=== PATIENT | female | born 1985 | race Caucasian/White ===

== ENCOUNTER 2019-02-03 15:14 | Emergency (ER) | payer OTHER ==
[~2019-02-03] VITALS: Ht 167.6 cm; Wt 61.2 kg
[~2019-02-03 15:14] MED LIST: Amoxicillin500 MG PO; CEFD300 PO; CHLO25 PO; CITA20 PO; CYCL10 PO; Citalopram HBr10 MG PO; DONE10 PO; FAMO20 PO; FAMO40 PO; HYDACE5 PO; IBUP800 PO; INSULANI SC; LACT PO; LEVSOD150 PO; MEMA10 PO; MULVITMINE; Minipress5 MG; NALT50 PO; OMEP10ER; OMEP20ER; ONDA4 PO; OXYACE5T PO; PANT40 PO; PRAZ1 PO; PRED10 PO; PRED20 PO; PROM6.25SY PO; Percocet 5-3251 EACH PO; Permethrin60 GM TP; QUET100 PO; SERT100 PO; SERT50 PO; Verotin-Gr Cap1 EACH PO; YAZ PO; Zoloft100 MG PO; [UNRECOGNIZED DRUG - OTHER]; [UNRECOGNIZED DRUG - OTHER]
[2019-02-03] MEDS ORDERED: YAZ 28 TABLET1 EACH PO (16:16)
[2019-02-03] MEDS ORDERED: CYCL10 PO (16:38)
[2019-02-03] MEDS ORDERED: IBUP600 PO (16:39)
== END 2019-02-03 16:58 | disposition home or self-care (01) ==
LOC: ER 15:14
DX: S16.1XXA Strain of muscle, fascia and tendon at neck level, initial encounter (principal); S29.012A Strain of muscle and tendon of back wall of thorax, initial encounter; M54.5 Low back pain; R11.10 Vomiting, unspecified; F17.210 Nicotine dependence, cigarettes, uncomplicated; Z91.040 Latex allergy status; Z88.8 Allergy status to other drugs, medicaments and biological substances; Z79.899 Other long term (current) drug therapy; V59.49XA Driver of pick-up truck or van injured in collision with other motor vehicles in traffic accident, initial encounter
CPT/HCPCS: 72040; 96372; 99284-25; J1885

== ENCOUNTER → 2019-12-29 | Outpatient (CLI) | payer OTHER ==
[~2019-12-29] MED LIST changes: +IBUP600 PO; +YAZ 28 TABLET1 EACH PO
== END | disposition home or self-care (01) ==
LOC: LAB SHORT 11:14 → LAB 11:14
PROVIDERS: Advanced Practice Midwife
DX: O60.03 Preterm labor without delivery, third trimester (principal)
CPT/HCPCS: 82731

== ENCOUNTER 2020-02-12 21:07 | Inpatient (IN) | payer OTHER ==
[~2020-02-12] VITALS: Ht 165.1 cm; Wt 65.4 kg
[~2020-02-12 21:07] MED LIST changes: +NITR100CA PO; +PRENATAL TABLE1 EAC2 PO
[2020-02-12 21:35] LABS: BASOPHILS ABSOLUTE AUTO 0.04 K/mm3 (0.00-0.23); BASOPHILS PERCENT AUTO 0 % (0-2); EOSINOPHILS ABSOLUTE AUTO 0.11 K/mm3 (0.00-0.68); EOSINOPHILS PERCENT AUTO 1 % (0-6); Hematocrit 38.3 % (33.0-51.0); Hemoglobin 12.9 g/dL (11.5-16.0); IMMATURE GRAN ABSOLUTE AUTO 0.13 K/mm3 (0.00-0.10); IMMATURE GRAN PERCENT AUTO 1 % (0-1); LYMPHOCYTES ABSOLUTE AUTO 3.79 K/mm3 (0.84-5.20); LYMPHOCYTES PERCENT AUTO 25 % (21-46); MONOCYTES ABSOLUTE AUTO 0.92 K/mm3 (0.16-1.47); MONOCYTES PERCENT AUTO 6 % (4-13); Mean Corpuscular HGB 30.3 pg (26.0-34.0); Mean Corpuscular HGB Conc 33.7 g/dL (31.5-36.5); Mean Corpuscular Volume 90 fL (80-100); Mean Platelet Volume 11.1 fL (9.1-12.4); NEUTROPHILS PERCENT AUTO 68 % (41-73); Platelet Count 258 K/mm3 (150-400); RDW Coefficient Variation 13.5 % (11.7-14.2); RDW Standard Deviation 43.8 fL (35.1-46.3); Red Blood Cell Count 4.26 M/mm3 (3.80-5.20); White Blood Cell Count 15.49 K/mm3 (4.00-11.30)
--- NOTE | 2020-02-13 10:05 | NUR ---
8970 PT DC HOME, UNDELIVERED, PT CONTRACTIONS ARE SPACED OUT, PT WAS ABLE TO SLEEP THRU THEM, HAS NO CERVICAL CHANGE FROM ADMIT, WAS SEEN BY DR FRANKLIN, DR FRANKLIN REVIEWED STRIP AND TO DC PT HOME WITH INSTRUCTIONS
== END 2020-02-13 09:50 | disposition home or self-care (01) | DRG 833 ==
LOC: OBS 21:07 → BC 21:25
PROVIDERS: ADMIT Advanced Practice Midwife
DX: O47.1 False labor at or after 37 completed weeks of gestation (principal); Z3A.37 37 weeks gestation of pregnancy
CPT/HCPCS: 36415; 85025; 86850; 86900; 86901; J2210

== ENCOUNTER 2020-02-18 20:54 | Inpatient (IN) | payer OTHER ==
[~2020-02-18] VITALS: Ht 165.1 cm; Wt 63.0 kg
[2020-02-18 23:17] LABS: BASOPHILS ABSOLUTE AUTO 0.05 K/mm3 (0.00-0.23); BASOPHILS PERCENT AUTO 0 % (0-2); EOSINOPHILS PERCENT AUTO 1 % (0-6); Hematocrit 39.2 % (33.0-51.0); Hemoglobin 13.2 g/dL (11.5-16.0); IMMATURE GRAN ABSOLUTE AUTO 0.18 K/mm3 (0.00-0.10); IMMATURE GRAN PERCENT AUTO 1 % (0-1); LYMPHOCYTES ABSOLUTE AUTO 3.97 K/mm3 (0.84-5.20); LYMPHOCYTES PERCENT AUTO 24 % (21-46); MONOCYTES ABSOLUTE AUTO 1.01 K/mm3 (0.16-1.47); MONOCYTES PERCENT AUTO 6 % (4-13); Mean Corpuscular HGB 29.9 pg (26.0-34.0); Mean Corpuscular HGB Conc 33.7 g/dL (31.5-36.5); Mean Corpuscular Volume 89 fL (80-100); Mean Platelet Volume 10.9 fL (9.1-12.4); NEUTROPHILS ABSOLUTE AUTO 11.44 K/mm3 (1.96-9.15); NEUTROPHILS PERCENT AUTO 68 % (41-73); Platelet Count 237 K/mm3 (150-400); RDW Coefficient Variation 13.2 % (11.7-14.2); RDW Standard Deviation 43.4 fL (35.1-46.3); Red Blood Cell Count 4.42 M/mm3 (3.80-5.20); White Blood Cell Count 16.75 K/mm3 (4.00-11.30)
[2020-02-19 06:18] LABS: BASOPHILS ABSOLUTE AUTO 0.06 K/mm3 (0.00-0.23); BASOPHILS PERCENT AUTO 0 % (0-2); EOSINOPHILS ABSOLUTE AUTO 0.11 K/mm3 (0.00-0.68); EOSINOPHILS PERCENT AUTO 1 % (0-6); Hematocrit 36.1 % (33.0-51.0); Hemoglobin 12.1 g/dL (11.5-16.0); IMMATURE GRAN ABSOLUTE AUTO 0.17 K/mm3 (0.00-0.10); IMMATURE GRAN PERCENT AUTO 1 % (0-1); LYMPHOCYTES ABSOLUTE AUTO 4.04 K/mm3 (0.84-5.20); LYMPHOCYTES PERCENT AUTO 20 % (21-46); MONOCYTES ABSOLUTE AUTO 1.52 K/mm3 (0.16-1.47); MONOCYTES PERCENT AUTO 8 % (4-13); Mean Corpuscular HGB 30.1 pg (26.0-34.0); Mean Corpuscular HGB Conc 33.5 g/dL (31.5-36.5); Mean Corpuscular Volume 90 fL (80-100); Mean Platelet Volume 11.1 fL (9.1-12.4); NEUTROPHILS ABSOLUTE AUTO 14.35 K/mm3 (1.96-9.15); NEUTROPHILS PERCENT AUTO 71 % (41-73); Platelet Count 206 K/mm3 (150-400); RDW Coefficient Variation 13.3 % (11.7-14.2); RDW Standard Deviation 43.8 fL (35.1-46.3); Red Blood Cell Count 4.02 M/mm3 (3.80-5.20); White Blood Cell Count 20.25 K/mm3 (4.00-11.30)
[2020-02-19 11:36] LABS: BASOPHILS ABSOLUTE AUTO 0.06 K/mm3 (0.00-0.23); BASOPHILS PERCENT AUTO 0 % (0-2); EOSINOPHILS ABSOLUTE AUTO 0.14 K/mm3 (0.00-0.68); EOSINOPHILS PERCENT AUTO 1 % (0-6); Hematocrit 31.6 % (33.0-51.0); Hemoglobin 10.6 g/dL (11.5-16.0); IMMATURE GRAN PERCENT AUTO 1 % (0-1); LYMPHOCYTES ABSOLUTE AUTO 4.21 K/mm3 (0.84-5.20); LYMPHOCYTES PERCENT AUTO 20 % (21-46); MONOCYTES ABSOLUTE AUTO 1.42 K/mm3 (0.16-1.47); MONOCYTES PERCENT AUTO 7 % (4-13); Mean Corpuscular HGB 30.5 pg (26.0-34.0); Mean Corpuscular HGB Conc 33.5 g/dL (31.5-36.5); Mean Corpuscular Volume 91 fL (80-100); Mean Platelet Volume 10.9 fL (9.1-12.4); NEUTROPHILS ABSOLUTE AUTO 15.14 K/mm3 (1.96-9.15); NEUTROPHILS PERCENT AUTO 71 % (41-73); Platelet Count 203 K/mm3 (150-400); RDW Coefficient Variation 13.3 % (11.7-14.2); RDW Standard Deviation 43.8 fL (35.1-46.3); Red Blood Cell Count 3.48 M/mm3 (3.80-5.20); White Blood Cell Count 21.27 K/mm3 (4.00-11.30)
--- NOTE | 2020-02-19 12:29 | NUR ---
0855--PT STATES THAT SHE HAS HAD MANY CLOTS, ADVISED TO CALL WHEN IN BATHROOM SO THAT RN CAN ASSESS. UTERUS REMAINS FIRM WITH MASSAGE AT 2FIB. WHEN GOT UP TO GO TO THE BATHROOM LARGE CLOTS AND BLEEDING NOTED. WEIGHED PADS AT 402 GMS. IM METHERGINE GIVEN AND PROVIDER NOTIFIED FOR ORDER. 0945--PT BACK UP TO BATHROOM, NO FURTHER CLOTS NOTED. PADS WEIGHED 115 GMS AT THIS TIME. PROVIDER UPDATED AGAIN AND ADVISED TO START PO METHERGINE AND CYTOTEC ALTERNATING EVERY 3 HOURS. CYTOTEC GIVEN AT THIS TIME. 1045--PT EXITING ROOM TO GO OUT TO SMOKE WITH FOB. RN ADVISED AGAINST THIS AND ASKED IF SHE COULD CHANGE HER PAD. PAD WEIGHED 77GM AT THIS TIME AND PATIENT EXITED ROOM. SHE DID NOT MAKE IT TO THE END OF THE MOELLER BEFORE RETURNING TO THE BATHROOM WHERE SHE PRODUCED ANOTHER LARGE CLOT. PAD WEIGHED 145. PROVIDER UPDATED, SHE WAS GOING TO COME IN TO ASSESS. PER PROTOCAL GAVE PITOCIN AT 999/HR WITH FLUIDS AND 800 OF RECTAL CYTETEC. UTERUS IS BOGGY AND NOT FIRMING WITH MASSAGE. PROVIDER ADVISED A SECOND DOSE OF IM METHERGINE. 1145--BLEEDING HAS SLOWED AND FUNDUS REMAINS FIRM AT 3+ BELOW UMBILICUS. PT IS VERY CRAMPY BUT DOING OK. NO FURTHER CLOTS NOTED AT THIS TIME. PROVIDER REMAINS ON UNIT. NICOTINE PATCH WAS OFFERED AND DECLINED AT THIS TIME.
[2020-02-20] MEDS ORDERED: IBUP800 (12:23)
== END 2020-02-20 12:35 | disposition home or self-care (01) | DRG 806 ==
LOC: OBS 20:54 → BC 20:55 → OBS 22:58 → BC 23:02
PROVIDERS: ADMIT Nurse Practitioner Obstetrics & Gynecology
PROC: 10907ZC Drainage of Amniotic Fluid, Therapeutic from Products of Conception, Via Natural or Artificial Opening (ICD-10-PCS; 2020-02-18)
PROC: 10E0XZZ Delivery of Products of Conception, External Approach (ICD-10-PCS; principal; 2020-02-19)
DX: O69.3XX0 Labor and delivery complicated by short cord, not applicable or unspecified (principal); O72.1 Other immediate postpartum hemorrhage; Z37.0 Single live birth; Z3A.37 37 weeks gestation of pregnancy
CPT/HCPCS: 36415; 59025; 81003; 85025; 86850; 86900; 86901; A9270; J1885; J2210; J2590; J3010; J7120

== ENCOUNTER 2021-08-06 21:49 | Inpatient (IN) | payer OTHER ==
[~2021-08-06] VITALS: Ht 165.1 cm; Wt 67.0 kg
[~2021-08-06 21:49] MED LIST changes: +IBUP800
[2021-08-06 23:49] LABS: BASOPHILS ABSOLUTE AUTO 0.04 K/mm3 (0.00-0.23); BASOPHILS PERCENT AUTO 0 % (0-2); EOSINOPHILS ABSOLUTE AUTO 0.08 K/mm3 (0.00-0.68); EOSINOPHILS PERCENT AUTO 1 % (0-6); Hematocrit 37.7 % (33.0-51.0); Hemoglobin 12.4 g/dL (11.5-16.0); IMMATURE GRAN ABSOLUTE AUTO 0.12 K/mm3 (0.00-0.10); IMMATURE GRAN PERCENT AUTO 1 % (0-1); LYMPHOCYTES ABSOLUTE AUTO 2.37 K/mm3 (0.84-5.20); LYMPHOCYTES PERCENT AUTO 17 % (21-46); MONOCYTES ABSOLUTE AUTO 0.87 K/mm3 (0.16-1.47); MONOCYTES PERCENT AUTO 6 % (4-13); Mean Corpuscular HGB 28.6 pg (26.0-34.0); Mean Corpuscular HGB Conc 32.9 g/dL (31.5-36.5); Mean Corpuscular Volume 87 fL (80-100); NEUTROPHILS ABSOLUTE AUTO 10.11 K/mm3 (1.96-9.15); NEUTROPHILS PERCENT AUTO 74 % (41-73); Platelet Count 306 K/mm3 (150-400); RDW Coefficient Variation 13.6 % (11.7-14.2); RDW Standard Deviation 42.9 fL (35.1-46.3); Red Blood Cell Count 4.34 M/mm3 (3.80-5.20); White Blood Cell Count 13.59 K/mm3 (4.00-11.30)
[2021-08-07 00:25] LABS: Influenza A, PCR NEGATIVE (NEGATIVE); Influenza B, PCR NEGATIVE (NEGATIVE); Resp Syncytial Virus, PCR NEGATIVE (NEGATIVE); SARS-Cov-2 (COVID-19) PCR, MMC NEGATIVE (NEGATIVE)
[2021-08-08 05:33] LABS: BASOPHILS ABSOLUTE AUTO 0.03 K/mm3 (0.00-0.23); BASOPHILS PERCENT AUTO 0 % (0-2); EOSINOPHILS ABSOLUTE AUTO 0.21 K/mm3 (0.00-0.68); EOSINOPHILS PERCENT AUTO 2 % (0-6); Hematocrit 35.2 % (33.0-51.0); Hemoglobin 11.7 g/dL (11.5-16.0); IMMATURE GRAN PERCENT AUTO 1 % (0-1); LYMPHOCYTES ABSOLUTE AUTO 3.78 K/mm3 (0.84-5.20); LYMPHOCYTES PERCENT AUTO 31 % (21-46); MONOCYTES PERCENT AUTO 8 % (4-13); Mean Corpuscular HGB 28.7 pg (26.0-34.0); Mean Corpuscular HGB Conc 33.2 g/dL (31.5-36.5); Mean Corpuscular Volume 86 fL (80-100); Mean Platelet Volume 10.5 fL (9.1-12.4); NEUTROPHILS ABSOLUTE AUTO 7.25 K/mm3 (1.96-9.15); NEUTROPHILS PERCENT AUTO 59 % (41-73); Platelet Count 300 K/mm3 (150-400); RDW Coefficient Variation 13.7 % (11.7-14.2); RDW Standard Deviation 42.5 fL (35.1-46.3); Red Blood Cell Count 4.08 M/mm3 (3.80-5.20); White Blood Cell Count 12.37 K/mm3 (4.00-11.30)
--- NOTE | 2021-08-08 11:01 | NUR ---
BANDS MATCHED, HAS COPY OF DC INSTRUCTIONS, HAS APPT FOR [facility] TOMORROW 4-1 ENCOURAGED TO CALL WITH QUESTIONS
== END 2021-08-08 11:10 | disposition home or self-care (01) | DRG 807 ==
LOC: OBS 21:49 → BC 21:55 → OBS 23:16 → BC 23:18
PROVIDERS: ADMIT Obstetrics & Gynecology
PROC: 10E0XZZ Delivery of Products of Conception, External Approach (ICD-10-PCS; principal; 2021-08-07)
PROC: 10907ZC Drainage of Amniotic Fluid, Therapeutic from Products of Conception, Via Natural or Artificial Opening (ICD-10-PCS; 2021-08-07)
DX: O80 Encounter for full-term uncomplicated delivery (principal); Z37.0 Single live birth; Z3A.38 38 weeks gestation of pregnancy; Z20.822 Contact with and (suspected) exposure to COVID-19; Z67.20 Type B blood, Rh positive
CPT/HCPCS: 0241U; 36415; 59025; 85025; 86850; 86900; 86901; A9270; J1885; J2210; J3010

== ENCOUNTER 2022-03-01 12:45 | Emergency (ER) | payer OTHER ==
[~2022-03-01] VITALS: Ht 165.1 cm; Wt 59.0 kg
[2022-03-01] MEDS ORDERED: Norco 5-325 Ta1 EACH PO (14:01)
== END 2022-03-01 14:12 | disposition home or self-care (01) ==
LOC: ER 12:45
DX: S20.211A Contusion of right front wall of thorax, initial encounter (principal); Y04.8XXA Assault by other bodily force, initial encounter; F17.210 Nicotine dependence, cigarettes, uncomplicated; Z88.8 Allergy status to other drugs, medicaments and biological substances; Z91.040 Latex allergy status
CPT/HCPCS: 71046

== ENCOUNTER 2023-05-25 04:54 | Emergency (ER) | payer OTHER ==
[~2023-05-25] VITALS: Ht 167.6 cm; Wt 56.7 kg
[~2023-05-25 04:54] MED LIST changes: +Norco 5-325 Ta1 EACH PO
[2023-05-25 06:27] LABS: BASOPHILS ABSOLUTE AUTO 0.02 K/mm3 (0.00-0.23); BASOPHILS PERCENT AUTO 0 % (0-2); EOSINOPHILS ABSOLUTE AUTO 0.04 K/mm3 (0.00-0.68); EOSINOPHILS PERCENT AUTO 1 % (0-6); Hemoglobin 14.1 g/dL (11.5-16.0); IMMATURE GRAN ABSOLUTE AUTO 0.02 K/mm3 (0.00-0.10); IMMATURE GRAN PERCENT AUTO 0 % (0-1); LYMPHOCYTES ABSOLUTE AUTO 0.97 K/mm3 (0.84-5.20); LYMPHOCYTES PERCENT AUTO 12 % (21-46); MONOCYTES ABSOLUTE AUTO 0.75 K/mm3 (0.16-1.47); MONOCYTES PERCENT AUTO 9 % (4-13); Mean Corpuscular HGB 29.4 pg (26.0-34.0); Mean Corpuscular HGB Conc 32.8 g/dL (31.5-36.5); Mean Corpuscular Volume 90 fL (80-100); Mean Platelet Volume 10.1 fL (9.1-12.4); NEUTROPHILS ABSOLUTE AUTO 6.53 K/mm3 (1.96-9.15); NEUTROPHILS PERCENT AUTO 79 % (41-73); Platelet Count 232 K/mm3 (150-400); RDW Coefficient Variation 14.1 % (11.7-14.2); RDW Standard Deviation 46.4 fL (35.1-46.3); White Blood Cell Count 8.33 K/mm3 (4.00-11.30)
[2023-05-25 06:33] LABS: Albumin, Blood 3.4 g/dL (3.4-5.0); Albumin/Globulin Ratio 0.8 (0.8-1.8); Bilirubin, Total 0.5 mg/dL (0.1-1.0); Bun/Creatinine Ratio 7.2 (12.0-20.0); Calcium, Blood 8.6 mg/dL (8.5-10.1); Creatinine, Blood 0.83 mg/dL (0.40-1.00); Globulin, Blood 4.1 g/dL (2.2-4.0); Potassium, Blood 3.6 mmol/L (3.5-5.5); Total Protein, Blood 7.5 g/dL (6.4-8.2)
[2023-05-25 06:38] LABS: Source, Urine Clean Catch
[2023-05-25 06:52] LABS: Bilirubin, Urine Neg (Neg); Blood, Urine 3+ (Neg); Glucose Qualitative, Urine Neg (Neg); Ketones, Urine 1+ (Neg); Leukocyte Esterase, Urine 3+ (Neg); Nitrite, Urine Neg (Neg); Protein, Urine 2+ (Neg); Urobilinogen, Urine NORM (Normal)
[2023-05-25 06:58] LABS: Influenza A, PCR NEGATIVE (NEGATIVE); Influenza B, PCR NEGATIVE (NEGATIVE); Resp Syncytial Virus, PCR NEGATIVE (NEGATIVE); SARS-Cov-2 (COVID-19) PCR, MMC NEGATIVE (NEGATIVE)
[2023-05-25 07:05] LABS: Appearance, Urine Hazy (Clear); Color, Urine Yellow (P-Yellow)
[2023-05-25 07:06] LABS: Bacteria Mod /hpf; Mucus Light (0-Heavy); Squamous Epithelial Cells Mod /hpf (Few)
[2023-05-25 10:03] LABS: Source, Urine Straight Cath
[2023-05-25 10:20] LABS: Bilirubin, Urine Neg (Neg); Blood, Urine 2+ (Neg); Glucose Qualitative, Urine Neg (Neg); Ketones, Urine Neg (Neg); Leukocyte Esterase, Urine 1+ (Neg); Nitrite, Urine Neg (Neg); Protein, Urine 1+ (Neg); Urobilinogen, Urine NORM (Normal)
[2023-05-25 10:34] LABS: Appearance, Urine Hazy (Clear); Color, Urine Yellow (P-Yellow)
[2023-05-25 10:35] LABS: Bacteria Few /hpf; Squamous Epithelial Cells Few /hpf (Few)
[2023-05-25] MEDS ORDERED: OXYC5 PO (10:58)
[2023-05-25] MEDS ORDERED: CEPH500 PO (10:58)
[2023-05-25 11:15] VITALS: BP 114/91
== END 2023-05-25 11:25 | disposition home or self-care (01) ==
LOC: ER 04:54
PROVIDERS: Emergency Medicine
DX: N12 Tubulo-interstitial nephritis, not specified as acute or chronic (principal); F17.210 Nicotine dependence, cigarettes, uncomplicated; Z11.52 Encounter for screening for COVID-19
CPT/HCPCS: 0241U; 36415; 74177; 76705; 80053; 81001; 81025; 83690; 85025; 87077; 87086; 87186; 96361; 96374-59; 96375; 99284-25; J0696; J1170; J2405; J7030; P9612; Q9967

== ENCOUNTER → 2023-10-31 | Outpatient (CLI) | payer OTHER ==
[~2023-10-31] MED LIST changes: +CEPH500 PO; +OXYC5 PO
== END | disposition home or self-care (01) ==
LOC: LAB SHORT 16:55 → LAB 16:55
DX: N12 Tubulo-interstitial nephritis, not specified as acute or chronic (principal)
CPT/HCPCS: 87077; 87086; 87186

== ENCOUNTER 2023-11-18 20:15 | Emergency (ER) | payer OTHER ==
[~2023-11-18] VITALS: Ht 167.6 cm; Wt 56.7 kg
[2023-11-18 20:22] VITALS: BP 127/94
[2023-11-18 21:10] LABS: Influenza A, PCR NEGATIVE (NEGATIVE); Influenza B, PCR NEGATIVE (NEGATIVE); Resp Syncytial Virus, PCR NEGATIVE (NEGATIVE); SARS-Cov-2 (COVID-19) PCR, MMC NEGATIVE (NEGATIVE)
[2023-11-22] MEDS ORDERED: CEFP200 PO (00:31)
== END 2023-11-18 20:23 | disposition home or self-care (01) ==
LOC: ER 20:15
PROVIDERS: Physician Assistant
DX: J06.9 Acute upper respiratory infection, unspecified (principal); F32.A Depression, unspecified; F41.9 Anxiety disorder, unspecified; F17.210 Nicotine dependence, cigarettes, uncomplicated; Z79.899 Other long term (current) drug therapy; Z88.8 Allergy status to other drugs, medicaments and biological substances; Z91.040 Latex allergy status
CPT/HCPCS: 0241U; 99283

== ENCOUNTER 2024-11-20 19:09 | Emergency (ER) | payer OTHER ==
[~2024-11-20] VITALS: Ht 165.1 cm; Wt 49.4 kg
[~2024-11-20 19:09] MED LIST changes: +CEFP200 PO
[2024-11-20 20:09] LABS: BASOPHILS ABSOLUTE AUTO 0.02 K/mm3 (0.00-0.23); BASOPHILS PERCENT AUTO 0 % (0-2); EOSINOPHILS ABSOLUTE AUTO 0.00 K/mm3 (0.00-0.68); EOSINOPHILS PERCENT AUTO 0 % (0-6); Hematocrit 45.1 % (33.0-51.0); Hemoglobin 15.7 g/dL (11.5-16.0); IMMATURE GRAN ABSOLUTE AUTO 0.01 K/mm3 (0.00-0.10); IMMATURE GRAN PERCENT AUTO 0 % (0-1); LYMPHOCYTES ABSOLUTE AUTO 1.02 K/mm3 (0.84-5.20); LYMPHOCYTES PERCENT AUTO 17 % (21-46); MONOCYTES ABSOLUTE AUTO 0.37 K/mm3 (0.16-1.47); MONOCYTES PERCENT AUTO 6 % (4-13); Mean Corpuscular HGB Conc 34.8 g/dL (31.5-36.5); Mean Corpuscular Volume 101 fL (80-100); NEUTROPHILS ABSOLUTE AUTO 4.44 K/mm3 (1.96-9.15); NEUTROPHILS PERCENT AUTO 76 % (41-73); NRBC ABSOLUTE 0.00 K/mm3 (0.00-0.02); NRBC Auto 0.0 /100 WBC (0.0-0.2); Platelet Count 185 K/mm3 (150-400); RDW Coefficient Variation 14.1 % (11.7-14.2); RDW Standard Deviation 52.3 fL (35.1-46.3)
[2024-11-20 20:19] LABS: Bilirubin, Urine Neg (Neg); Color, Urine Yellow (P-Yellow); Glucose Qualitative, Urine Neg (Neg); Ketones, Urine 3+ (Neg); Leukocyte Esterase, Urine 1+ (Neg); Protein, Urine 2+ (Neg); Source, Urine Clean Catch; Specific Gravity, Urine 1.025 (1.003-1.022); Urobilinogen, Urine NORM (Normal)
[2024-11-20 20:25] LABS: White Blood Cells, Urine 25-50 /hpf (0-5)
[2024-11-20 20:26] LABS: Red Blood Cells, Urine 0-2 /hpf (0-2)
[2024-11-20 20:43] LABS: Alanine Aminotransfer (ALT/SGP 152.0 U/L (12-78); Albumin, Blood 3.9 g/dL (3.4-5.0); Albumin/Globulin Ratio 1.0 (0.8-1.8); Anion Gap 17.0 mmol/L (3-11); Aspartate Aminotrans (AST/SGOT 464.0 U/L (12-37); Bilirubin, Total 1.2 mg/dL (0.1-1.0); Blood Urea Nitrogen 9.0 mg/dL (8-24); CO2, Blood 20.0 mmol/L (21-32); Calcium, Blood 9.0 mg/dL (8.5-10.1); Chloride, Blood 104.0 mmol/L (98-108); Creatinine, Blood 0.61 mg/dL (0.40-1.00); Globulin, Blood 4.0 g/dL (2.2-4.0); Glucose, Blood 70.0 mg/dL (70-99); Potassium, Blood 4.0 mmol/L (3.5-5.5); Sodium, Blood 137.0 mmol/L (136-145); Total Protein, Blood 7.9 g/dL (6.4-8.2)
[2024-11-20] MEDS ORDERED: Ondansetron HCl 2 MG / ML 2ML Vial IV ONE (20:50)
[2024-11-20] MEDS ORDERED: NS 1,000 ML IV SCH ×2 (20:50→23:10)
[2024-11-20] MEDS ORDERED: Ketorolac Tromethamine 15mg Vial IV ONE (23:10)
[2024-11-20 23:20] LABS: Source, Urine Clean Catch
[2024-11-20 23:23] LABS: Bilirubin, Urine Neg (Neg); Glucose Qualitative, Urine Neg (Neg); Ketones, Urine 3+ (Neg); Leukocyte Esterase, Urine 1+ (Neg); Protein, Urine 1+ (Neg); Specific Gravity, Urine 1.020 (1.003-1.022); Urobilinogen, Urine NORM (Normal)
[2024-11-20 23:25] LABS: Color, Urine Yellow (P-Yellow)
[2024-11-20 23:29] LABS: Red Blood Cells, Urine 0-2 /hpf (0-2)
[2024-11-21] VITALS: BP 106/87
[2024-11-21] MEDS ORDERED: Ondansetron HCl 2 MG / ML 2ML Vial IV ONE (00:05)
[2024-11-21] MEDS ORDERED: CEFP200 PO (00:07)
[2024-11-21] MEDS ORDERED: ONDA4ODT MM (00:07)
[2024-11-21] MEDS ORDERED: RX Prepack 2 Tabs Ondansetron ODT 4MG UD ONE (00:10)
== END 2024-11-21 01:02 | disposition home or self-care (01) ==
LOC: ER 19:09
PROVIDERS: Student in an Organized Health Care Education/Training Program
DX: N39.0 Urinary tract infection, site not specified (principal); K21.9 Gastro-esophageal reflux disease without esophagitis; F43.10 Post-traumatic stress disorder, unspecified; F17.210 Nicotine dependence, cigarettes, uncomplicated; Z91.040 Latex allergy status; Z79.899 Other long term (current) drug therapy
CPT/HCPCS: 71046; 74177; 80053; 81001; 83605; 83690; 84484; 84703; 85025; 87086; 93005; 93010; 96374-59; 96375; 99284-25; A9270; J1885; J2405; J7030; Q9967

== ENCOUNTER 2025-01-20 19:20 | Emergency (ER) | payer OTHER ==
[~2025-01-20] VITALS: Ht 165.1 cm; Wt 45.4 kg
[~2025-01-20 19:20] MED LIST changes: +ONDA4ODT MM
[2025-01-20] MEDS ORDERED: DiphenhydrAMINE HCl 50 MG/ML 1ML Vial IV ONE (19:40)
[2025-01-20] MEDS ORDERED: EpiNEPhrine 1 MG/1 ML 1ML Vial IM ONE (19:40)
[2025-01-20] MEDS ORDERED: EPIPEN0.3 MG/0.1 IM (22:09)
[2025-01-20] MEDS ORDERED: Dexamethasone Sod Phos 10 MG/ML 1ML VIAL IV ONE (22:10)
[2025-01-20 22:24] VITALS: BP 115/84
== END 2025-01-20 22:23 | disposition home or self-care (01) ==
LOC: ER 19:20
DX: T63.441A Toxic effect of venom of bees, accidental (unintentional), initial encounter (principal); T78.2XXA Anaphylactic shock, unspecified, initial encounter; F43.10 Post-traumatic stress disorder, unspecified; K21.9 Gastro-esophageal reflux disease without esophagitis; F17.210 Nicotine dependence, cigarettes, uncomplicated; Z91.040 Latex allergy status; Z88.8 Allergy status to other drugs, medicaments and biological substances
CPT/HCPCS: 96372-59; 96374; 96375; 99282-25; J0169; J1100; J1200

== ENCOUNTER 2025-04-15 14:01 | Emergency (ER) | payer OTHER ==
[~2025-04-15] VITALS: Ht 165.1 cm; Wt 54.4 kg
[~2025-04-15 14:01] MED LIST changes: +EPIPEN0.3 MG/0.1 IM
[2025-04-15] MEDS ORDERED: Folic Acid 1 MG TAB PO ONE (14:20)
[2025-04-15] MEDS ORDERED: NS 1,000 ML IV SCH (14:20)
[2025-04-15] MEDS ORDERED: Ondansetron HCl 2 MG / ML 2ML Vial IV ONE (14:20)
[2025-04-15 14:45] LABS: BASOPHILS ABSOLUTE AUTO 0.03 K/mm3 (0.00-0.23); BASOPHILS PERCENT AUTO 1 % (0-2); EOSINOPHILS ABSOLUTE AUTO 0.04 K/mm3 (0.00-0.68); EOSINOPHILS PERCENT AUTO 1 % (0-6); Hematocrit 42.2 % (33.0-51.0); Hemoglobin 15.3 g/dL (11.5-16.0); IMMATURE GRAN ABSOLUTE AUTO 0.00 K/mm3 (0.00-0.10); IMMATURE GRAN PERCENT AUTO 0 % (0-1); LYMPHOCYTES ABSOLUTE AUTO 1.62 K/mm3 (0.84-5.20); LYMPHOCYTES PERCENT AUTO 43 % (21-46); MONOCYTES ABSOLUTE AUTO 0.41 K/mm3 (0.16-1.47); MONOCYTES PERCENT AUTO 11 % (4-13); Mean Corpuscular HGB Conc 36.3 g/dL (31.5-36.5); Mean Corpuscular Volume 99 fL (80-100); NEUTROPHILS ABSOLUTE AUTO 1.69 K/mm3 (1.96-9.15); NEUTROPHILS PERCENT AUTO 45 % (41-73); NRBC ABSOLUTE 0.00 K/mm3 (0.00-0.02); NRBC Auto 0.0 /100 WBC (0.0-0.2); Platelet Count 119 K/mm3 (150-400); RDW Coefficient Variation 11.8 % (11.7-14.2); RDW Standard Deviation 42.9 fL (35.1-46.3)
[2025-04-15 15:02] LABS: Alanine Aminotransfer (ALT/SGP 131 U/L (12-78); Albumin, Blood 3.9 g/dL (3.4-5.0); Albumin/Globulin Ratio 1.1 (0.8-1.8); Anion Gap 14 mmol/L (3-11); Aspartate Aminotrans (AST/SGOT 513 U/L (12-37); Bilirubin, Total 2.5 mg/dL (0.1-1.0); Blood Urea Nitrogen 6 mg/dL (8-24); CO2, Blood 24 mmol/L (21-32); Calcium, Blood 9.3 mg/dL (8.5-10.1); Chloride, Blood 101 mmol/L (98-108); Creatinine, Blood 0.68 mg/dL (0.40-1.00); Ethanol (Alcohol), Blood, Med <3 mg/dL; Globulin, Blood 3.6 g/dL (2.2-4.0); Glucose, Blood 135 mg/dL (70-99); Magnesium, Blood 1.7 mg/dL (1.6-2.4); Phosphorus, Blood 2.8 mg/dL (2.5-4.9); Potassium, Blood 3.5 mmol/L (3.5-5.5); Sodium, Blood 135 mmol/L (136-145); Total Protein, Blood 7.5 g/dL (6.4-8.2)
[2025-04-15 18:12] VITALS: BP 130/88
== END 2025-04-15 18:15 | disposition home or self-care (01) ==
LOC: ER 14:01
PROVIDERS: Emergency Medicine
DX: F10.239 Alcohol dependence with withdrawal, unspecified (principal); K21.9 Gastro-esophageal reflux disease without esophagitis; F17.210 Nicotine dependence, cigarettes, uncomplicated; F43.10 Post-traumatic stress disorder, unspecified; Z91.040 Latex allergy status; Z91.038 Other insect allergy status
CPT/HCPCS: 80053; 80320; 83690; 83735; 84100; 84703; 85025; 96361; 96374; 96375; 99285-25; A9270; J2405; J2560; J7030

== ENCOUNTER 2025-05-04 06:04 | Observation (INO) | payer OTHER ==
[~2025-05-04] VITALS: Ht 167.6 cm; Wt 48.5 kg
[2025-05-04] MEDS ORDERED: NS 1,000 ML IV SCH (08:10)
[2025-05-04] MEDS ORDERED: Ondansetron HCl 2 MG / ML 2ML Vial IV ONE (10:20)
[2025-05-04] MEDS ORDERED: Tranexamic Acid 100 ML IV ONE (10:20)
[2025-05-04] MEDS ORDERED: HYDROmorphone HCl/Pf 1MG SYR IV ONE (10:20)
[2025-05-04 11:03] LABS: BASOPHILS ABSOLUTE AUTO 0.03 K/mm3 (0.00-0.23); BASOPHILS PERCENT AUTO 1 % (0-2); EOSINOPHILS ABSOLUTE AUTO 0.04 K/mm3 (0.00-0.68); EOSINOPHILS PERCENT AUTO 1 % (0-6); Hematocrit 33.3 % (33.0-51.0); Hemoglobin 11.6 g/dL (11.5-16.0); IMMATURE GRAN ABSOLUTE AUTO 0.01 K/mm3 (0.00-0.10); IMMATURE GRAN PERCENT AUTO 0 % (0-1); LYMPHOCYTES ABSOLUTE AUTO 1.89 K/mm3 (0.84-5.20); LYMPHOCYTES PERCENT AUTO 41 % (21-46); MONOCYTES ABSOLUTE AUTO 0.33 K/mm3 (0.16-1.47); MONOCYTES PERCENT AUTO 7 % (4-13); Mean Corpuscular HGB Conc 34.8 g/dL (31.5-36.5); Mean Corpuscular Volume 102 fL (80-100); NEUTROPHILS ABSOLUTE AUTO 2.28 K/mm3 (1.96-9.15); NEUTROPHILS PERCENT AUTO 50 % (41-73); NRBC ABSOLUTE 0.00 K/mm3 (0.00-0.02); NRBC Auto 0.0 /100 WBC (0.0-0.2); Platelet Count 188 K/mm3 (150-400); RDW Coefficient Variation 11.9 % (11.7-14.2); RDW Standard Deviation 44.1 fL (35.1-46.3)
[2025-05-04 11:31] LABS: Alanine Aminotransfer (ALT/SGP 36.0 U/L (12-78); Albumin, Blood 2.8 g/dL (3.4-5.0); Albumin/Globulin Ratio 0.9 (0.8-1.8); Anion Gap 9.0 mmol/L (3-11); Aspartate Aminotrans (AST/SGOT 58.0 U/L (12-37); Bilirubin, Total 0.3 mg/dL (0.1-1.0); Blood Urea Nitrogen 5.0 mg/dL (8-24); CO2, Blood 25.0 mmol/L (21-32); Calcium, Blood 7.7 mg/dL (8.5-10.1); Chloride, Blood 114.0 mmol/L (98-108); Creatinine, Blood 0.57 mg/dL (0.40-1.00); Globulin, Blood 3.1 g/dL (2.2-4.0); Glucose, Blood 80.0 mg/dL (70-99); Potassium, Blood 3.2 mmol/L (3.5-5.5); Sodium, Blood 145.0 mmol/L (136-145); Total Protein, Blood 5.9 g/dL (6.4-8.2)
[2025-05-04] MEDS ORDERED: LORazepam 2 MG/ML 1ML Injection IV PRN ×2 (13:45)
[2025-05-04] MEDS ORDERED: FLU VACC TS2025-26(6MOS UP)/PF 45 MCG/0.5 ML SYRINGE IM SCH (13:50)
[2025-05-04] MEDS ORDERED: Naloxone HCl 0.4MG / ML 1ML Vial IV PRN (13:50)
[2025-05-04] MEDS ORDERED: HYDROcodone 5-APAP 325 TAB PO PRN (13:50)
[2025-05-04] MEDS ORDERED: Folic Acid 1 MG TAB PO SCH (14:00)
[2025-05-04 17:10] VITALS: BP 132/98
[2025-05-04 18:14] LABS: Hematocrit 33.7 % (33.0-51.0); Hemoglobin 11.6 g/dL (11.5-16.0)
--- NOTE | 2025-05-04 19:46 | NUR ---
EOS: PLEASE SEE ADMISSION SHIFT SUMMARY: NO ACUTE CHANGES, H+H STABLE ALMOST THE SAME. TREATED PAIN WITH PRN ORAL HYDROCODONE, NOT MUCH IMPROVEMENT, PAIN WORSENS WITH MOVEMENT AT FIRST THAN LESSES ENDORSES" FEELS LIKE A CONTRACTION". TREATED CIWA WITHLIBRIUM 25 mg FOR CIWA ~8, SCORE SKEWED DUE TO NAUSEA TREATED WITH ZOFRAN HOWEVER, OVERALL APPEARANCE I.E. IMPROVED TREMORS, SWEATINESS, AND OBSERVED ANXIETY. NO ACUTE CONCERN FROM THIS RN. PLAN OF CARE CONTINUES
[2025-05-04 20:05] VITALS: BP 103/81
[2025-05-05 00:14] VITALS: BP 126/59
[2025-05-05 02:15] LABS: Alanine Aminotransfer (ALT/SGP 35.0 U/L (12-78); Albumin, Blood 2.6 g/dL (3.4-5.0); Albumin/Globulin Ratio 0.8 (0.8-1.8); Anion Gap 8.0 mmol/L (3-11); Aspartate Aminotrans (AST/SGOT 60.0 U/L (12-37); Bilirubin, Total 0.7 mg/dL (0.1-1.0); Blood Urea Nitrogen 6.0 mg/dL (8-24); CO2, Blood 27.0 mmol/L (21-32); Calcium, Blood 7.6 mg/dL (8.5-10.1); Chloride, Blood 107.0 mmol/L (98-108); Creatinine, Blood 0.59 mg/dL (0.40-1.00); Globulin, Blood 3.1 g/dL (2.2-4.0); Glucose, Blood 67.0 mg/dL (70-99); Magnesium, Blood 1.3 mg/dL (1.6-2.4); Phosphorus, Blood 2.8 mg/dL (2.5-4.9); Potassium, Blood 3.9 mmol/L (3.5-5.5); Sodium, Blood 138.0 mmol/L (136-145); Total Protein, Blood 5.7 g/dL (6.4-8.2)
[2025-05-05 02:17] LABS: Hematocrit 33.4 % (33.0-51.0); Hemoglobin 11.6 g/dL (11.5-16.0)
[2025-05-05] MEDS ORDERED: Magnesium Sulf 2 GM/Water 50ML 50 ML IV ONE (03:05)
[2025-05-05 04:01] VITALS: BP 133/86
--- NOTE | 2025-05-05 06:04 | NUR ---
NOC SHIFT SUMMARY PT A+OX4 ABLE TO MAKE NEEDS KNOWN, COOPERATIVE W/CARES. CIWA PROTOCOL IN PLACE SCORING 4-8, MEDICATED PER EMAR. PT ON TELE SHOWING SR-SB, SHE DENIES CHEST PAIN OR PRESSURE. BP STABLE. RA SATTING >95 BREATHING EVEN AND UNLABORED. ABD BINDER IN PLACE AT ALL TIMES, READJUSTED FOR COMFORT AND TO VISUALIZE ABDOMEN, NO SIGNS OF BRUISING OR BLEEDING. HEMOGLOBIN STABLE AT 11.6 REPEAT DRAW AT 1000. MAG LOW THIS AM AT 1.3 REPLACED ORDERED AND GIVEN. TT IS REPORTING 8 OUT OF 10 PAIN IN HER RLQ WHEN PRN PAIN MEDICATION WEARS OFF. PAIN MEDICATION SEEMS TO BE WORKING WELL FOR PAIN CONTROL AND WILL KNOCK PAIN DOWN TO AROUND A 6 OUT OF 10. BED IN LOWEST POSTION. CALL LIGHT IN REACH. WILL REPORT TO ONCOMING RN.
[2025-05-05 07:20] VITALS: BP 127/75
[2025-05-05 11:15] LABS: Hematocrit 35.1 % (33.0-51.0); Hemoglobin 12.0 g/dL (11.5-16.0)
[2025-05-05 12:50] VITALS: BP 141/98
[2025-05-05 15:34] VITALS: BP 122/87
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
[2025-05-05] MEDS ORDERED: Polyethylene Glycol 3350 17 gm PO SCH (19:00)
[2025-05-05 20:29] VITALS: BP 139/99
--- NOTE | 2025-05-05 21:54 | NUR ---
ASSUMPTION OF CARE: ASSUMED CARE OF PATIENT. AWAKE DURING SHIFT CHANGE REPORT. SITTING UP IN BED c HOB ELEVATED. BREATHING EVEN AND UNLABORED c ROOM AIR. ABD BINDER IN PLACE. CONTINUES TO C/O RLQ TENDERNESS AND REQUESTING PAIN MEDICATION FOR BEDTIME. PT REPORTS SEEING BRUISING "COMING TO SURFACE"; NO BRUISING NOTED BY PREVIOUS RN OR THIS RN DURING SHIFT CHANGE REPORT. BED IN LOWEST POSITION. CALL LIGHT WITHIN REACH. ACUTE NEEDS MET.
[2025-05-06 04:13] VITALS: BP 114/73
--- NOTE | 2025-05-06 05:31 | NUR ---
END OF SHIFT SUMMARY: A&Ox4. PLEASANT AND COOPERATIVE WITH CARE. CALLS APPROPRIATELY AND IS ABLE TO ADVOCATE NEEDS EFFECTIVELY. VSS. BREATHING EVEN AND UNLABORED c RA. CONTINENT OF BOWEL AND BLADDER; LBM 05/02/25; PEG POWDER ADMINISTERED. TOLERATING PO INTAKE. ABD BINDER IN PLACE. AMBULATES INDEPENDENTLY. MEDS WHOLE c FLUIDS. CIWA SCORES 8, 1 AND 2. MEDICATED PRN PER EMR FOR PAIN AND W/D Sx. BED IN LOWEST POSITION, CALL LIGHT WITHIN REACH, ALL NEEDS MET. REPORT TO ONCOMING NURSE.
[2025-05-06 08:24] VITALS: BP 104/77
[2025-05-06 10:01] LABS: BASOPHILS ABSOLUTE AUTO 0.02 K/mm3 (0.00-0.23); BASOPHILS PERCENT AUTO 0 % (0-2); EOSINOPHILS ABSOLUTE AUTO 0.18 K/mm3 (0.00-0.68); EOSINOPHILS PERCENT AUTO 4 % (0-6); Hematocrit 40.7 % (33.0-51.0); Hemoglobin 13.6 g/dL (11.5-16.0); IMMATURE GRAN ABSOLUTE AUTO 0.01 K/mm3 (0.00-0.10); IMMATURE GRAN PERCENT AUTO 0 % (0-1); LYMPHOCYTES ABSOLUTE AUTO 1.81 K/mm3 (0.84-5.20); LYMPHOCYTES PERCENT AUTO 36 % (21-46); MONOCYTES ABSOLUTE AUTO 0.39 K/mm3 (0.16-1.47); MONOCYTES PERCENT AUTO 8 % (4-13); Mean Corpuscular HGB Conc 33.4 g/dL (31.5-36.5); Mean Corpuscular Volume 105 fL (80-100); NEUTROPHILS ABSOLUTE AUTO 2.61 K/mm3 (1.96-9.15); NEUTROPHILS PERCENT AUTO 52 % (41-73); NRBC ABSOLUTE 0.00 K/mm3 (0.00-0.02); NRBC Auto 0.0 /100 WBC (0.0-0.2); Platelet Count 191 K/mm3 (150-400); RDW Coefficient Variation 11.6 % (11.7-14.2); RDW Standard Deviation 44.5 fL (35.1-46.3)
[2025-05-06 10:19] LABS: Anion Gap 7.0 mmol/L (3-11); Blood Urea Nitrogen 6.0 mg/dL (8-24); CO2, Blood 28.0 mmol/L (21-32); Calcium, Blood 8.6 mg/dL (8.5-10.1); Chloride, Blood 106.0 mmol/L (98-108); Creatinine, Blood 0.62 mg/dL (0.40-1.00); Glucose, Blood 78.0 mg/dL (70-99); Magnesium, Blood 2.0 mg/dL (1.6-2.4); Potassium, Blood 3.9 mmol/L (3.5-5.5); Sodium, Blood 137.0 mmol/L (136-145)
[2025-05-06] MEDS ORDERED: NARCAN4 M1 ×2 (11:10→12:20)
[2025-05-06] MEDS ORDERED: CHLO25 PO (12:18)
[2025-05-06] MEDS ORDERED: Norco 10-325 T1 EACH PO (12:19)
[2025-05-06 12:36] VITALS: BP 128/95
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
== END 2025-05-06 12:50 | disposition home or self-care (01) ==
LOC: ER 06:04 → PCU 06:05 → ER 13:41 → PCU 13:41 → EDBEDREQ 16:27 → PCU 17:00
PROVIDERS: Dentist General Practice; Emergency Medicine; Family Medicine; ADMIT Student in an Organized Health Care Education/Training Program
DX: S30.11XA Contusion of abdominal wall, initial encounter (principal); Y04.8XXA Assault by other bodily force, initial encounter; F10.239 Alcohol dependence with withdrawal, unspecified; J43.9 Emphysema, unspecified; K21.9 Gastro-esophageal reflux disease without esophagitis; F32.A Depression, unspecified; F43.10 Post-traumatic stress disorder, unspecified; F17.210 Nicotine dependence, cigarettes, uncomplicated; Z91.038 Other insect allergy status; Z91.040 Latex allergy status; Z88.8 Allergy status to other drugs, medicaments and biological substances
CPT/HCPCS: 36415; 70450; 71260; 72125; 74177; 80048; 80053; 82947; 83735; 84100; 85014; 85018; 85025; 86850; 86900; 86901; 96361; 96374; 96375; 96376; 99285-25; A9270; G0378; J1171; J2405; J3411; J3475; J7030; Q9967